=== PATIENT | female | born 1995 | race Hispanic/Latino ===

== ENCOUNTER 2019-05-24 20:41 | Emergency (ER) | payer MEDICAID | END 2019-05-24 21:22 | disposition left against medical advice (07) | LOC: ERS 20:41 | DX: Z53.21 Procedure and treatment not carried out due to patient leaving prior to being seen by health care provider (principal) ==

== ENCOUNTER 2019-08-29 10:22 | Outpatient (CLI) | payer OTHER ==
--- NOTE | 2019-08-29 11:49 | ULT ---
EXAM: OB ultrasound COMPARISON: None HISTORY: female. Evaluate size, dates, and anatomy. TECHNIQUE: Multiplanar grayscale and color Doppler images were obtained in a transabdominal ult rasound. FINDINGS: There is a single live intrauterine with heart rate of 126 bpm. A survey wa s performed which is unremarkable. The head, intracranial structures, heart, stomach, kidneys, umbilical cord, umbilical cord insertion, spine, face, and extremities were evaluated and were unrema rkable. Estimated weight is 366 g. Average age of the fetus based off today's examination is 20 weeks 5 days. BPD 4.81 cm -- 20 weeks 4 days HC 18.40 cm -- 20 weeks 6 days AC 15.19 cm -- 20 weeks 3 days FL 3.44 cm -- 20 weeks 6 days The placenta is anterior in location without focal abnormality. ANTWAN is 14.7 cm which is normal. The cervix is normal in length. There is no evidence of placenta previa. IMPRESSION: Single live intrauterine with estimated age of 20 weeks 5 days.
== END 2019-08-29 10:23 | disposition home or self-care (01) ==
LOC: BICULT 10:22
PROVIDERS: ATTEND Family Medicine
DX: Z34.02 Encounter for supervision of normal first pregnancy, second trimester (principal); Z3A.20 20 weeks gestation of pregnancy
CPT/HCPCS: 76805

== ENCOUNTER 2020-01-09 07:31 | Inpatient (IN) | payer OTHER ==
[2020-01-11 21:06] VITALS: BMI 39.9
[2020-01-11] MEDS ORDERED: Lidocaine 1% (PF) 30 ML VIAL SC PRN (21:13)
[2020-01-11] MEDS ORDERED: Methylergonovine 0.2 MG/ML VIAL IM PRN (21:13)
[2020-01-11] MEDS ORDERED: HYDROcodone/Acetaminophen 5/325 mg Tablet PO PRN (21:13)
[2020-01-11] MEDS ORDERED: Diphenoxylate HCl/Atropine Tablet PO PRN (21:13)
[2020-01-11] MEDS ORDERED: hydrALAZINE 20 MG/ML VIAL SLOW IVP PRN (21:13)
[2020-01-11] MEDS ORDERED: Carboprost 250 MCG/ML AMP IM PRN (21:13)
[2020-01-11] MEDS ORDERED: Promethazine HCl 25 MG/ML VIAL IM PRN (21:13)
[2020-01-11] MEDS ORDERED: Ondansetron PF 4 MG/2 ML Vial IVP PRN (21:13)
[2020-01-11] MEDS ORDERED: Misoprostol 200 MCG TAB PR PRN (21:13)
[2020-01-11] MEDS ORDERED: Ibuprofen 800 MG TAB PO PRN (21:13)
[2020-01-11] MEDS ORDERED: NS / Oxytocin 40 units/1000ml 1,000 ML IV PRN (21:13)
[2020-01-11] MEDS ORDERED: Penicillin G Potassium 5 MILL.UNITS in Sodium Chloride 0.9% 100 ML IVPB SCH (21:30)
[2020-01-11] MEDS: Misoprostol 100 MCG TAB VAG SCH (21:35)
[2020-01-11] MEDS: Lactated Ringer's 1,000 ML IV SCH (21:35)
[2020-01-11 21:50] LABS: Hemoglobin 12.6 g/dL (12.0-16.0); Mean Corpuscular HGB CONC 35.6 g/dL (32.0-36.0); Mean Corpuscular Hemoglobin 29.9 pg (27.0-31.0); Mean Corpuscular Volume 83.9 fL (78.0-98.0); Mean Platelet Volume 9.5 fL (7.4-10.4); Platelet Count 289 thou/uL (130-400); RBC Distribution Width 12.5 % (11.5-14.5); Red Blood Cell (RBC) Count 4.23 mill/uL (4.20-5.40); White Blood Cell (WBC) Count 7.5 thou/uL (4.8-10.8)
[2020-01-11 22:31] LABS: Syphilis Antibody Nonreactive (Nonreactive); Syphilis Antibody Index 0.03 S/CO (<1.00 Non-Reactive)
[2020-01-11 22:32] LABS: Creatinine, Urine 278.59 mg/dL (47-110)
[2020-01-11 22:48] LABS: ALT (SGPT) 29 U/L (8-55); AST (SGOT) 20 U/L (5-34); Albumin 3.4 g/dL (3.5-5.0); Alkaline Phosphatase 232 U/L (40-110); Anion Gap 13 mmol/L (10-20); BUN (Urea Nitrogen) 9 mg/dL (7.0-18.7); Bilirubin, Total 0.2 mg/dL (0.2-1.2); Calc. Creatinine Clearance 184 mL/min (70-130); Calcium 9.2 mg/dL (7.8-10.44); Carbon Dioxide 23 mmol/L (22-29); Chloride 106 mmol/L (98-107); Estimated GFR-MDRD Greater than 90; Glucose 98 mg/dL (70-105); Potassium 4.2 mmol/L (3.5-5.1); Protein, Total 6.4 g/dL (6.0-8.3); Sodium 138 mmol/L (136-145)
[2020-01-11 23:03] LABS: HBSAg Index 0.13 S/CO (0-0.99); Hep B Surf Ag Non-Reactive S/CO (NonReactive)
[2020-01-12] MEDS: Misoprostol 100 MCG TAB VAG SCH ×2 (03:28→05:15)
[2020-01-12] MEDS: Penicillin G 2.5 MILL.units 2.5 MILL.UNITS in Premix Bag 1 BAG IVPB SCH ×2 (03:28→05:16)
[2020-01-12] MEDS: Butorphanol Tartrate 1 MG/ML VIAL SLOW IVP PRN ×2 (03:49→06:35)
[2020-01-12] MEDS: Lactated Ringer's 1,000 ML IV SCH ×3 (04:59→13:58)
[2020-01-12] MEDS ORDERED: NS w/ Oxytocin 10 units 500 ML IVPB SCH (06:15)
[2020-01-12] MEDS ORDERED: Fentanyl 4 mcg/Bup 0.1% Cadd 100 ML ONE ×2 (08:14→15:30)
[2020-01-12] MEDS ORDERED: Promethazine HCl 25 MG/ML VIAL IM PRN ×2 (09:46→21:49)
[2020-01-12] MEDS ORDERED: EPHEDRINE 25 MG/5 ML SYRINGE SLOW IVP PRN (09:46)
[2020-01-12] MEDS ORDERED: Ondansetron PF 4 MG/2 ML Vial IVP PRN ×2 (09:46→21:49)
[2020-01-12] MEDS ORDERED: Lactated Ringer's 500 ML IV PRN (09:46)
[2020-01-12] MEDS ORDERED: Naloxone HCl 0.4 mg/ml Vial IVP PRN ×2 (09:46)
[2020-01-12] MEDS ORDERED: Acetaminophen 325 MG TAB PO PRN (09:46)
[2020-01-12] MEDS ORDERED: diphenhydrAMINE 50 MG/ML VIAL IVP PRN (09:46)
[2020-01-12] MEDS ORDERED: Fentanyl 4 mcg/Bupivacaine 0.1% Cassette 100 ML EPIDURAL SCH (10:00)
[2020-01-12] MEDS ORDERED: Communication Order-Pharmacy FS SCH (10:00)
[2020-01-12] MEDS ORDERED: hydrALAZINE 20 MG/ML VIAL ONE ×2 (17:27→19:11)
[2020-01-12] MEDS ORDERED: Magnesium Sulfate 20 gm/500 ml 20 GM/500 ML BAG ONE (18:22)
[2020-01-12] MEDS ORDERED: NS / Oxytocin 40 units/1000ml 1,000 ML IV SCH (21:49)
[2020-01-12] MEDS ORDERED: Bisacodyl 10 MG SUPP PR PRN (21:49)
[2020-01-12] MEDS ORDERED: Calcium Gluconate 4.6 MEQ in Sodium Chloride 0.9% 100 ML IVPB PRN (21:49)
[2020-01-12] MEDS ORDERED: Benzocaine-Menthol 82.5 ML CAN TOP PRN (21:49)
[2020-01-12] MEDS ORDERED: Magnesium Sulfate 20 gm/500 ml 20 GM/500 ML BAG IVPB SCH (21:49)
[2020-01-12] MEDS ORDERED: Milk Of Magnesia 30 ML UDCUP PO PRN (21:49)
[2020-01-12] MEDS ORDERED: HYDROcodone/Acetaminophen 5/325 mg Tablet PO PRN ×2 (21:49)
[2020-01-12] MEDS ORDERED: diphenhydrAMINE 25 MG CAP PO PRN (21:49)
[2020-01-12] MEDS ORDERED: hydrALAZINE 20 MG/ML VIAL SLOW IVP SCH (21:49)
[2020-01-12] MEDS ORDERED: Lanolin Ointment 7 GM TUBE TOP PRN (21:49)
[2020-01-12] MEDS ORDERED: Docusate Calcium (SURFAK) 240 MG CAP PO SCH (22:00)
[2020-01-13 06:07] LABS: Hemoglobin 11.2 g/dL (12.0-16.0); Mean Corpuscular HGB CONC 34.3 g/dL (32.0-36.0); Mean Corpuscular Hemoglobin 29.3 pg (27.0-31.0); Mean Corpuscular Volume 85.3 fL (78.0-98.0); Mean Platelet Volume 8.6 fL (7.4-10.4); Platelet Count 231 thou/uL (130-400); RBC Distribution Width 12.7 % (11.5-14.5); Red Blood Cell (RBC) Count 3.83 mill/uL (4.20-5.40); White Blood Cell (WBC) Count 13.8 thou/uL (4.8-10.8)
[2020-01-13] MEDS ORDERED: Adacel (T-DAP) 0.5 ML SYRINGE IM ONE (09:00)
[2020-01-13] MEDS: Ferrous Sulfate 325 MG TAB PO SCH (11:09)
[2020-01-13] MEDS: Prenatal Vitamin 1 TAB PO SCH (11:09)
[2020-01-13] MEDS: Ibuprofen 800 MG TAB PO SCH ×2 (14:08→21:43)
[2020-01-13] MEDS ORDERED: cloNIDine 0.1 MG TAB PO PRN (15:15)
[2020-01-13] MEDS: Lactated Ringer's 1,000 ML IV SCH (18:35)
[2020-01-13] MEDS: Docusate Calcium (SURFAK) 240 MG CAP PO SCH ×2 (21:44→21:47)
[2020-01-14] MEDS: Ibuprofen 800 MG TAB PO SCH ×3 (04:18→14:04)
[2020-01-14] MEDS: Docusate Calcium (SURFAK) 240 MG CAP PO SCH ×2 (09:19→09:20)
[2020-01-14] MEDS: Prenatal Vitamin 1 TAB PO SCH (09:19)
[2020-01-14] MEDS: Ferrous Sulfate 325 MG TAB PO SCH (09:20)
[2020-01-14 12:22] VITALS: BP 143/66; TEMP 98.2
== END 2020-01-14 14:19 | disposition home or self-care (01) | DRG 807 ==
LOC: EDSTATUS 16:24 → L&D 01-11 20:45 → 3SW 01-13 23:15
PROVIDERS: ADMIT Family Medicine; ATTEND Family Medicine
PROC: 10E0XZZ Delivery of Products of Conception, External Approach (ICD-10-PCS; principal; 2020-01-11)
PROC: 0W8NXZZ Division of Female Perineum, External Approach (ICD-10-PCS; 2020-01-11)
PROC: 3E033VJ Introduction of Other Hormone into Peripheral Vein, Percutaneous Approach (ICD-10-PCS; 2020-01-11)
DX: O70.9 Perineal laceration during delivery, unspecified (principal); Z37.0 Single live birth; Z3A.40 40 weeks gestation of pregnancy
CPT/HCPCS: 36415; 51702; 80053; 82570; 83735; 84156; 85027; 86780; 86850; 86900; 86901; 87340; J0360; J0595; J2590; J3475

== ENCOUNTER 2020-01-09 10:44 | Outpatient (CLI) | payer OTHER ==
[2020-01-10 13:12] LABS: SARS-CoV-2 MS2 Positive; SARS-CoV-2 N Gene Negative; SARS-CoV-2 S Gene Negative; SARS-CoV-2 orf1ab Negative
== END 2020-01-09 10:45 | disposition home or self-care (01) ==
LOC: LABSCS 10:44
PROVIDERS: ATTEND Family Medicine
DX: Z01.812 Encounter for preprocedural laboratory examination (principal); Z11.59 Encounter for screening for other viral diseases
CPT/HCPCS: 87635; U0003

== ENCOUNTER 2024-02-01 12:06 | Outpatient (CLI) | payer BC, OTHER | END 2024-02-01 12:07 | disposition home or self-care (01) | LOC: BICULT 12:06 | PROVIDERS: ATTEND Family Medicine | DX: O09.892 Supervision of other high risk pregnancies, second trimester (principal); Z3A.20 20 weeks gestation of pregnancy | CPT/HCPCS: 76805 ==